=== PATIENT | female | born 1960 | race Caucasian/White ===

== ENCOUNTER 2018-01-09 17:39 | Emergency (ER) | payer OTHER ==
[~2018-01-09] VITALS: Ht 160 cm; Wt 71.2 kg
[~2018-01-09 17:39] MED LIST: ASPI81EC PO; CHOL10002 PO; ERGO400 PO; FISH1000 PO; HYDACE5 PO; IBUP800 PO; KETO10 PO; LEVSOD100 PO; LEVSOD125; Naprosyn500 MG PO; Norco 10-325 T1 EACH PO; OXYACE5T PO; Omeprazole20 M1; PRED20 PO; PROM25 PO; RANI150 PO; TAMS.4ER PO; Zofran Odt4 MG SL
[2018-01-09] MEDS ORDERED: ASPI81CH PO (18:13)
== END 2018-01-09 18:49 | disposition home or self-care (01) ==
LOC: ER 17:39
DX: S62.663A Nondisplaced fracture of distal phalanx of left middle finger, initial encounter for closed fracture (principal); Z88.0 Allergy status to penicillin; Z79.899 Other long term (current) drug therapy; Z79.82 Long term (current) use of aspirin; Z87.442 Personal history of urinary calculi; Z87.891 Personal history of nicotine dependence; W23.0XXA Caught, crushed, jammed, or pinched between moving objects, initial encounter
CPT/HCPCS: 73140; 99283-25

== ENCOUNTER → 2018-08-24 | Outpatient (CLI) | payer OTHER ==
[~2018-08-24] MED LIST changes: +ASPI81CH PO
== END ==
LOC: LAB 13:27 → LAB SHORT 13:27
DX: N89.8 Other specified noninflammatory disorders of vagina (principal)
CPT/HCPCS: 87070; 87205

== ENCOUNTER → 2018-12-10 | Outpatient (CLI) | payer SELFPAY | LOC: LAB SHORT 15:00 → LAB 15:00 | DX: N89.9 Noninflammatory disorder of vagina, unspecified (principal) | CPT/HCPCS: 87070; 87086; 87205 ==

== ENCOUNTER 2020-10-20 23:49 | Emergency (ER) | payer OTHER ==
[~2020-10-20] VITALS: Ht 315 cm; Wt 71.2 kg
[2020-10-21] MEDS ORDERED: EUTHYROX88 MCG PO (02:29)
[2020-10-21] MEDS ORDERED: IBUP600 PO (02:30)
[2020-10-21] MEDS ORDERED: THERA-D2000 UNIT PO (02:30)
== END 2020-10-21 03:00 | disposition home or self-care (01) ==
LOC: ER 23:49
DX: S40.012A Contusion of left shoulder, initial encounter (principal); S10.93XA Contusion of unspecified part of neck, initial encounter; Z88.0 Allergy status to penicillin; Z87.891 Personal history of nicotine dependence; W01.0XXA Fall on same level from slipping, tripping and stumbling without subsequent striking against object, initial encounter; Y92.89 Other specified places as the place of occurrence of the external cause; Y99.0 Civilian activity done for income or pay
CPT/HCPCS: 96372; 99283; A9270; J1885

== ENCOUNTER → 2021-09-19 | Outpatient (CLI) | payer OTHER ==
[~2021-09-19] MED LIST changes: +EUTHYROX88 MCG PO; +IBUP600 PO; +THERA-D2000 UNIT PO
== END | disposition home or self-care (01) ==
LOC: LAB SHORT 10:36
DX: M54.89 Other dorsalgia (principal)
CPT/HCPCS: 87086

== ENCOUNTER → 2023-04-01 | Outpatient (CLI) | payer SELFPAY | LOC: LAB 09:36 → LAB SHORT 09:36 | DX: R31.9 Hematuria, unspecified (principal) | CPT/HCPCS: 87077; 87086; 87186 ==

== ENCOUNTER → 2025-04-25 | Outpatient (CLI) | payer OTHER ==
[~2025-04-25] MED LIST changes: +ASPERFLEX1 EACH TOP
== END | disposition home or self-care (01) ==
LOC: LAB 15:15 → LAB SHORT 15:15
DX: M54.50 Low back pain, unspecified (principal); N23 Unspecified renal colic
CPT/HCPCS: 87086